=== PATIENT | female | born 1995 | race Caucasian/White ===

== ENCOUNTER 2019-08-25 14:41 | Inpatient (IN) | payer BC ==
--- NOTE | 2019-08-25 14:50 | PDOC ---
Rapid Medical Evaluation Time Seen by Provider: 08/25/19 14:47 Medical Evaluation: Allergies Allergy/AdvReac Type Severity Reaction Status Date / Time No Known Allergies Allergy Verified 02/11/15 10:29 08/25/19 14:48 I performed a brief in-person evaluation of this patient. Patient referred by PCP with hgb 6.3. Reports LMP one month ago, lasted approx 3 months. C/o dizziness, SOB, intermittent CP. Alert, oriented, no distress. RRR, tachycardic (110). Lungs CTAB. I have ordered the following: EKG CXR Pgu CBC, CMP, PT/INR, T&S Patient will proceed to the main ED for further evaluation. 08/25/19 14:50 Discharge Disposition - Diagnosis Symptomatic anemia - Referrals - Patient Instructions - Post Discharge Activity
[2019-08-25 16:23] LABS: HEMATOCRIT 21.8 % (32.4-45.2); LYMPH % 27.9 % (8-40); MCHC 28.9 g/dl (32.0-36.0); MEAN CELL VOLUME 53.5 fl (80-96); MEAN PLT VOLUME 8.6 fl (7.5-11.1); MONO % 3.8 % (3.8-10.2); NEUT % 65.3 % (42.8-82.8); PLATELET COUNT 564 K/MM3 (134-434); RBC 4.08 M/mm3 (3.60-5.2); WHITE BLOOD COUNT 13.4 K/mm3 (4.0-10.0)
--- NOTE | 2019-08-25 16:23 | PDOC ---
History of Present Illness - General Chief Complaint: Blood Transfusion Stated Complaint: SENT BY PCP/TRANSFUSION Time Seen by Provider: 08/25/19 14:47 History Source: Patient Exam Limitations: Clinical Condition - History of Present Illness Initial Comments: 08/25/19 16:20 Morbid obese patient with no significant past medical history and history of menorrhagia since seen by general surgery for blood transfusion due to hemoglobin of 6.5 in office while doing preop labs for bariatric surgery. Patient report excessive menstrual bleeding with menstrual period lasting for 3 months. Denies any vaginal bleeding today. Patient report fatigue with intermittent lightheadedness for over a week now. Denies weakness, nausea, vomiting, palpitation. Denies history of blood transfusion. Patient report was on OCP control in the past which she self DC'd Is this a multiple visit Asthma Patient?: No Past History - Past Medical History Allergies/Adverse Reactions: Allergies Allergy/AdvReac Type Severity Reaction Status Date / Time No Known Allergies Allergy Verified 02/11/15 10:29 Home Medications: Ambulatory Orders Pantoprazole Sodium [Protonix] 40 mg PO DAILY #30 tablet. 02/11/15 Anemia: Yes (sickle cell trait) Asthma: No Cancer: No Cardiac Disorders: No Diabetes: No HTN: No Seizures: No Thyroid Disease: Yes - Reproductive History (#): 1 Para: 1 - Psycho Social/Smoking Cessation Hx Smoking Status: No Smoking History: Never smoked Have you smoked in the past 12 months: No Number of Cigarettes Smoked Daily: 0 Information on smoking cessation initiated: No Hx Alcohol Use: No Drug/Substance Use Hx: No Substance Use Type: None Hx Substance Use Treatment: No Review of Systems - Review of Systems Able to Perform ROS?: Yes Is the patient limited Luxembourgish proficient: No Constitutional: Yes: Weakness (intermittent fatigue). No: Fever, Malaise HEENTM: No: Symptoms Reported Respiratory: No: Symptoms reported, See HPI, Cough, Orthopnea, Shortness of Breath, SOB with Exertion, SOB at Rest, Stridor, Wheezing, Productive cough, Hemoptysis, Other Cardiac (ROS): No: Symptoms Reported, See HPI, Chest Pain, Edema, Irregular Heart Rate, Lightheadedness, Palpitations, Syncope, Chest Tightness, Other ABD/GI: No: Symptoms Reported, See HPI, Nausea, Vomiting, Abdominal cramping Musculoskeletal: No: Symptoms Reported Integumentary: No: Symptoms Reported Neurological: Yes: Symptoms reported, See HPI, Dizziness (intermittent). No: Tingling, Unsteady Gait, Ataxia Hematologic/Lymphatic: Yes: Symptoms Reported, See HPI, Anemia All Other Systems: Reviewed and Negative *Physical Exam - Vital Signs Last Vital Signs Temp Pulse Resp BP Pulse Ox 98.6 F 107 H 18 109/66 99 08/25/19 14:48 08/25/19 14:48 08/25/19 14:48 08/25/19 14:48 08/25/19 14:48 - Physical Exam Comments: 08/25/19 16:32 GENERAL: Well developed, well nourished. Awake and alert. No acute distress. NECK: Supple. Full ROM. CARDIOVASCULAR: Regular rate and rhythm. No murmurs, rubs, or gallops. Distal pulses are 2+ and symmetric. PULMONARY: No evidence of respiratory distress. Lungs clear to auscultation bilaterally. No wheezing, rales or rhonchi. ABDOMINAL: Soft. Non-tender. Non-distended. No rebound or guarding. No organomegaly. Normoactive bowel sounds. MUSCULOSKELETAL Normal range of motion at all joints. SKIN: Warm and dry. Normal capillary refill. No rashes. No cyanosis. NEUROLOGICAL: Alert, awake, appropriate. Gait is normal without ataxia. PSYCHIATRIC: Cooperative. Good eye contact. Appropriate mood General Appearance: Yes: Nourished, Appropriately Dressed. No: Apparent Distress ED Treatment Course - LABORATORY CBC & Chemistry Diagram: 08/25/19 16:10 08/25/19 16:10 Medical Decision Making - Medical Decision Making 08/25/19 16:22 Patient with no significant past medical history and history of menorrhagia since seen by PCP for blood transfusion due to hemoglobin of 6.5 in office. Patient report excessive menstrual bleeding with menstrual period lasting for 3 months. Denies any vaginal bleeding today. Patient report fatigue with intermittent lightheadedness for over a week now. Denies weakness, nausea, vomiting, palpitation. Denies history of blood transfusion. Patient report was on OCP control in the past which she self DC'd Pelvic exam unremarkable with normal cardiac and lung exam. Patient no acute distress. CBC, CMP, type and screen labs ordered. 08/25/19 16:54 CBC shows hemoglobin of 6.3. Patient will be admitted for transfusion. Type and screen labs still pending. 08/25/19 17:28 RH : Oneg. 2units of pRBC ordered. EKG ordered. Admitting medicine team contacted for admission 08/25/19 17:40 Patient seen by medicine and agrees to admission to Dr. Medrano Discharge - Discharge Information Problems reviewed: Yes Clinical Impression/Diagnosis: Symptomatic anemia Condition: Stable - Admission Yes - Follow up/Referral - Patient Discharge Instructions - Post Discharge Activity
[2019-08-25 16:30] LABS: MCH 15.5 pg (25.7-33.7)
[2019-08-25 16:34] LABS: HEMOGLOBIN 6.3 GM/dL (10.7-15.3)
[2019-08-25 16:53] LABS: ALBUMIN 3.7 g/dl (3.4-5.0); BILIRUBIN,TOTAL 0.3 mg/dL (0.2-1); BLOOD UREA NITROGEN 11.8 mg/dL (7-18); CALCIUM 8.8 mg/dL (8.5-10.1); CREATININE 0.9 mg/dL (0.55-1.3); POTASSIUM 4.1 mmol/L (3.5-5.1); TOT PROT 7.7 g/dl (6.4-8.2)
[2019-08-25 16:56] LABS: INR 1.2 (0.83-1.09); PROTHROMBIN TIME (PATIENT) 14.2 SEC (9.7-13.0)
--- NOTE | 2019-08-25 17:52 | HP ---
CHIEF COMPLAINT: lightheadedness PCP: none HISTORY OF PRESENT ILLNESS: Patient is a 23 y/o female with a history of menorhagia who presents from a doctors office for low hemoglobin level. patient reports hat she has very heavy menstrual cycles. She first had menarche at age 8. She reports since then her periods have lasted months, the longest being six months. Most recently her period was one month ago and lasted two months. In four days she goes through a box of tampons. She reports she always passes clots. At that time she went to a OBGYN doctor who prescribed her OCp's. Patient took them, her menstrual cycle stopped and she stopped the medication. Today she was visiting with a Bariatric surgeon to look into a bypass. Patient reports she is sometimes constipated, and cold. She denies nausea vomiting, chest pain, or difficulty breathing. Patient has SUDHEER but harding snot wear her bipap mask at night. No other complaints. ER course was notable for: (1) (2) (3) Recent Travel: denies PAST MEDICAL HISTORY: denies PAST SURGICAL HISTORY: denies family hx: HTN Social History: Smoking: denies Alcohol: socially Drugs: denies Allergies No Known Allergies Allergy (Verified 02/11/15 10:29) HOME MEDICATIONS: Home Medications Medication Instructions Recorded Pantoprazole Sodium [Protonix] 40 mg PO DAILY #30 tablet. 02/11/15 REVIEW OF SYSTEMS CONSTITUTIONAL: Absent: fever, chills, diaphoresis, generalized weakness, malaise, loss of appetite, weight change HEENT: Absent: rhinorrhea, nasal congestion, throat pain, throat swelling, difficulty swallowing, mouth swelling, ear pain, eye pain, visual changes CARDIOVASCULAR: Absent: chest pain, syncope, palpitations, irregular heart rate, lightheadedness , peripheral edema RESPIRATORY: Absent: cough, shortness of breath, dyspnea with exertion, orthopnea, wheezing, stridor, hemoptysis GASTROINTESTINAL: Absent: abdominal pain, abdominal distension, nausea, vomiting, diarrhea, constipation, melena, hematochezia GENITOURINARY: Absent: dysuria, frequency, urgency, hesitancy, hematuria, flank pain, genital pain MUSCULOSKELETAL: Absent: myalgia, arthralgia, joint swelling, back pain, neck pain SKIN: Absent: rash, itching, pallor HEMATOLOGIC/IMMUNOLOGIC: Absent: easy bleeding, easy bruising, lymphadenopathy, frequent infections ENDOCRINE:cold intolerance Absent: unexplained weight gain, unexplained weight loss, heat intolerance, NEUROLOGIC: dizziness, lightheadedness Absent: headache, focal weakness or paresthesias, unsteady gait, seizure, mental status changes, bladder or bowel incontinence PSYCHIATRIC: Absent: anxiety, depression, suicidal or homicidal ideation, hallucinations. PHYSICAL EXAMINATION Vital Signs - 24 hr 08/25/19 14:48 Temperature 98.6 F Pulse Rate 107 H Respiratory 18 Rate Blood Pressure 109/66 O2 Sat by Pulse 99 Oximetry (%) GENERAL: Awake, alert, and fully oriented, in no acute distress. Obese HEAD: Normal with no signs of trauma. EYES: Pupils equal, round and reactive to light, extraocular movements intact, s EARS, NOSE, THROAT: Moist mucous membranes. NECK: acanthosis nigricans in neck and at eye lids LUNGS: Breath sounds equal, clear to auscultation bilaterally. No wheezes, and no crackles. No accessory muscle use. HEART: Regular rate and rhythm, normal S1 and S2 without murmur, rub or gallop. ABDOMEN: Soft, nontender, not distended, normoactive bowel sounds, no guarding, no rebound, no masses. No hepatomegaly or splenomegaly. MUSCULOSKELETAL: Normal range of motion at all joints. LOWER EXTREMITIES: 2+ pulses, warm, well-perfused. No calf tenderness. No peripheral edema. SKIN: Warm, dry, normal turgor, no rashes or lesions noted, normal capillary refill. CBC, BMP 08/25/19 16:10 08/25/19 16:10 ASSESSMENT/PLAN: Patient is a 23 y/o female with a history of menorhagia who presents from a doctors office for symptomatic anemia. #symptomatic anemia - likely 2/2 to fibroids vs endocrine disorder - hemoglobin 6.3 - transfuse blood and f/u CBC 30 minutes after transfusion - f/u OBGYN - iron studies show iron deficeincy, venofer 200 ordered - f/u FOBT #Obesity - f/u A1c, lipid panel, tsh - patient in touch with bariatric surgeon for possible w/o #DVT ppx - SCD's FEN - regular diet Dispo: monitor on med surg Visit type - Emergency Visit Emergency Visit: Yes ED Registration Date: 08/25/19 Care time: The patient presented to the Emergency Department on the above date and was hospitalized for further evaluation of their emergent condition. - New Patient This patient is new to me today: Yes Date on this admission: 08/28/19 - Critical Care Critical Care patient: No ATTENDING PHYSICIAN STATEMENT I saw and evaluated the patient. I reviewed the resident's note and discussed the case with the resident. I agree with the resident's findings and plan as documented. SUBJECTIVE: OBJECTIVE: ASSESSMENT AND PLAN:
[2019-08-25 18:34] LABS: ANISOCYTOSIS 2+; MACROCYTOSIS 0; PLATELET ESTIMATE INCREASED; TEAR DROP CELLS 1+
[2019-08-25] MEDS ORDERED: IRON SUCROSE INJECTION 200 MG in SODIUM CHLORIDE 90 ML IVPB ONE (19:30)
[2019-08-25] MEDS ORDERED: ACETAMINOPHEN 325 MG TABLET (FP) PO ONE (22:01)
[2019-08-25 23:13] VITALS: BMI 66.9
--- NOTE | 2019-08-25 23:13 | PN ---
Progress Note (short form) - Note Progress Note: pt has pvt Career Coordinator MD from [employer] , please contact [employer] for Career Coordinator consult
[2019-08-26] MEDS ORDERED: IRON SUCROSE INJECTION 200 MG in SODIUM CHLORIDE 90 ML IVPB ONE (00:45)
[2019-08-26 01:58] LABS: HEMATOCRIT 22.7 % (32.4-45.2); MCHC 29.8 g/dl (32.0-36.0); MEAN CELL VOLUME 56.2 fl (80-96); MEAN PLT VOLUME 8.8 fl (7.5-11.1); PLATELET COUNT 530 K/MM3 (134-434); RBC 4.03 M/mm3 (3.60-5.2); RDW 20.9 % (11.6-15.6); WHITE BLOOD COUNT 13.1 K/mm3 (4.0-10.0)
[2019-08-26 02:15] LABS: MCH 16.7 pg (25.7-33.7)
[2019-08-26 02:17] LABS: HEMOGLOBIN 6.7 GM/dL (10.7-15.3)
[2019-08-26] MEDS ORDERED: ACETAMINOPHEN 325 MG TABLET (FP) PO ONE (04:28)
[2019-08-26 08:23] LABS: BASO % 0.9 % (0-2.0); EOS % 2.5 % (0-4.5); HEMATOCRIT 23.4 % (32.4-45.2); HEMOGLOBIN 7.3 GM/dL (10.7-15.3); LYMPH % 27.8 % (8-40); MCHC 31.2 g/dl (32.0-36.0); MEAN CELL VOLUME 57.1 fl (80-96); MEAN PLT VOLUME 8.4 fl (7.5-11.1); MONO % 4.2 % (3.8-10.2); NEUT % 64.6 % (42.8-82.8); PLATELET COUNT 496 K/MM3 (134-434); RBC 4.09 M/mm3 (3.60-5.2); RDW 25.4 % (11.6-15.6); WHITE BLOOD COUNT 10.8 K/mm3 (4.0-10.0)
[2019-08-26 08:32] LABS: MCH 17.8 pg (25.7-33.7)
[2019-08-26 08:37] LABS: ALBUMIN 3.2 g/dl (3.4-5.0); BILIRUBIN,TOTAL 0.8 mg/dL (0.2-1); BLOOD UREA NITROGEN 13.3 mg/dL (7-18); CALCIUM 8.2 mg/dL (8.5-10.1); MAGNESIUM 2.3 mg/dL (1.8-2.4); PHOSPHOROUS 4.1 mg/dL (2.5-4.9); POTASSIUM 4.2 mmol/L (3.5-5.1); TOT PROT 6.8 g/dl (6.4-8.2)
[2019-08-26 08:38] LABS: CHOLESTEROL 172 mg/dL (50-200); HDL CHOLESTEROL 26 mg/dL (40-60); LDL CHOLESTEROL (ONLY SJRH) 111 mg/dL (5-100); TRIGLYCERIDES 147 mg/dL (0-150)
[2019-08-26] MEDS ORDERED: PANTOPRAZOLE 40 MG TABLET (FP) PO SCH (10:00)
[2019-08-26] MEDS ORDERED: IRON SUCROSE INJECTION 100 MG in SODIUM CHLORIDE 95 ML IVPB ONE (10:26)
--- NOTE | 2019-08-26 10:26 | PN ---
<ShubhamrosarioNicola hernandez - Last Filed: 08/26/19 12:49> Physical Exam: Attending Addendum I have seen and examined the indicated patient independently/along with the resident team. I have personally verified all guevara exam findings and historical components. I have personally interpreted all diagnostics indicated per todays orders and reviewed interpretation of indicated subspecialty services. This patient meets a high level of medical complexity and warrants inpatient admission to avoid decompensation and worsening of the indicated illness. 60 minutes have been spent in the completion of this admission. S: Agree with historical findings as outlined in resident documentation regarding history of present illness. Blood counts today noted. Pending evaluation from [facility] OBGYN services. Hemodynamics stable. 10 system ROS completed and is negative aside from indicated issues in the resident/attending history of present illness and full documentation. Past Medical History and Past Surgical Histories reviewed in depth; per resident note Social history is reviewed; per resident note; Complete family history is reviewed with patient and is non-pertinent aside from the indicated issues outlined above. No sudden history of cardiac . O: All vital signs reviewed per ER records and are as per EMR NAD, AAO, Resting in bed; mentating at baseline per prior encounters NC AT EOMI PERRLA Neck supple, trachea midline, no jamie LN RRR s1/2 Lungs CTAB, w/ sym expansion NT ND +BS No skin breakdown or rashes noted CN2-12 wnl, no new focal deficits noted Muscle tone normal, no deficits in motor function or strength noted Normal mood, appropriate behavior, average insight A/P: Patient seen, examined, and discussed in depth with resident team. Problem list reviewed per resident note and agree with their discussion aside from as supplemented by myself below. Problems include: -Acute on chronic blood loss anemia -Iron deficiency anemia -Morbid Obesity (SUDHEER eval ordered, referring to bariatrics) -Thrombocytosis (likely reactive0 Full Code Continue to monitor on the floor; agree with plan as documented per resident note. ATTENDING PHYSICIAN STATEMENT I saw and evaluated the patient. I reviewed the resident's note and discussed the case with the resident. I agree with the resident's findings and plan as documented. SUBJECTIVE: OBJECTIVE: ASSESSMENT AND PLAN: <Clemente Washington - Last Filed: 08/26/19 20:42> Physical Exam: SUBJECTIVE: Pt without any bleeding today. Reports still lightheaded with walking to bathroom, but breathing overall improved. OBJECTIVE: Vital Signs Period Temp Pulse Resp BP Sys/Roland Pulse Ox Last 24 Hr 98.1 F-98.8 F 96-114 16-20 109-144/66-87 99-100 GENERAL: The patient is awake, alert, and fully oriented, in no acute distress. HEENT: NC/AT, ERICK, no pallor, MMM NECK: No JVD LUNGS: CTA bilaterally, no wheezes, no crackles, no accessory muscle use. HEART: RRR, S1, S2 without murmur ABDOMEN: Soft, obese, nontender, nondistended, normoactive bowel sounds, EXTREMITIES: 2+ pulses, warm, well-perfused, no edema. PSYCH: Normal mood, normal affect. SKIN: Warm, dry, normal turgor, no rashes or lesions noted Laboratory Results - last 24 hr 08/25/19 08/25/19 08/25/19 16:10 16:10 16:10 WBC 13.4 H RBC 4.08 Hgb 6.3 L* Hct 21.8 L D MCV 53.5 L MCH 15.5 L D MCHC 28.9 L RDW 20.0 H Plt Count 564 H D MPV 8.6 D Absolute Neuts (auto) 8.7 H Neutrophils % 65.3 Lymphocytes % 27.9 Monocytes % 3.8 Eosinophils % 2.0 Basophils % 1.0 Nucleated RBC % 0 Hypochromia 2+ Platelet Estimate Increased Polychromasia 1+ Poikilocytosis 1+ Anisocytosis 2+ Microcytosis 1+ Macrocytosis 0 Tear Drop Cells 1+ PT with INR 14.20 H INR 1.20 H Sodium 135 L Potassium 4.1 Chloride 102 Carbon Dioxide 27 Anion Gap 6 L BUN 11.8 Creatinine 0.9 Est GFR (CKD-EPI)AfAm 103.72 Est GFR (CKD-EPI)NonAf 89.49 Random Glucose 93 Calcium 8.8 Phosphorus Magnesium Iron 14 L TIBC 487 H Iron Saturation 2 L Unsaturated IBC 473 H Total Bilirubin 0.3 AST 24 ALT 41 Alkaline Phosphatase 98 Total Protein 7.7 Albumin 3.7 Triglycerides Cholesterol Total LDL Cholesterol HDL Cholesterol TSH Urine HCG, Qual Blood Type Antibody Screen Crossmatch 08/25/19 08/25/19 08/26/19 16:10 16:36 01:21 WBC 13.1 H RBC 4.03 Hgb 6.7 L* Hct 22.7 L MCV 56.2 L MCH 16.7 L MCHC 29.8 L RDW 20.9 H Plt Count 530 H MPV 8.8 Absolute Neuts (auto) Neutrophils % Lymphocytes % Monocytes % Eosinophils % Basophils % Nucleated RBC % Hypochromia Platelet Estimate Polychromasia Poikilocytosis Anisocytosis Microcytosis Macrocytosis Tear Drop Cells PT with INR INR Sodium Potassium Chloride Carbon Dioxide Anion Gap BUN Creatinine Est GFR (CKD-EPI)AfAm Est GFR (CKD-EPI)NonAf Random Glucose Calcium Phosphorus Magnesium Iron TIBC Iron Saturation Unsaturated IBC Total Bilirubin AST ALT Alkaline Phosphatase Total Protein Albumin Triglycerides Cholesterol Total LDL Cholesterol HDL Cholesterol TSH Urine HCG, Qual Negative Blood Type O NEGATIVE Antibody Screen Negative Crossmatch See Detail 08/26/19 08/26/19 08/26/19 07:20 07:20 07:20 WBC 10.8 H RBC 4.09 Hgb 7.3 L Hct 23.4 L MCV 57.1 L MCH 17.8 L MCHC 31.2 L RDW 25.4 H Plt Count 496 H MPV 8.4 Absolute Neuts (auto) 6.9 Neutrophils % 64.6 Lymphocytes % 27.8 Monocytes % 4.2 Eosinophils % 2.5 Basophils % 0.9 Nucleated RBC % 0 Hypochromia Platelet Estimate Polychromasia Poikilocytosis Anisocytosis Microcytosis Macrocytosis Tear Drop Cells PT with INR INR Sodium 138 Potassium 4.2 Chloride 104 Carbon Dioxide 27 Anion Gap 7 L BUN 13.3 Creatinine 1.0 Est GFR (CKD-EPI)AfAm 91.32 Est GFR (CKD-EPI)NonAf 78.79 Random Glucose 96 Calcium 8.2 L Phosphorus 4.1 Magnesium 2.3 Iron TIBC Iron Saturation Unsaturated IBC Total Bilirubin 0.8 AST 21 ALT 33 Alkaline Phosphatase 97 Total Protein 6.8 Albumin 3.2 L Triglycerides 147 Cholesterol 172 Total LDL Cholesterol 111 H HDL Cholesterol 26 L TSH 2.74 Urine HCG, Qual Blood Type Antibody Screen Crossmatch Active Medications Generic Name Dose Route Start Last Admin Trade Name Freq PRN Reason Stop Dose Admin Pantoprazole Sodium 40 mg 08/26/19 10:00 08/26/19 09:01 Protonix - PO 40 mg DAILY WANDY Administration ASSESSMENT/PLAN: Acute blood loss anemia Menorrhagia Morbid obesity GERD --Pt reports bleeding cessation --Hgb increased minimally with PRBC, however pt not actively bleeding anymore --Will transfuse 1UPRBC more and recheck CBC --Ordered transvaginal US --Normal results noted --Can follow outpatient SECURITY NURSE as discussed given normal TV U/S --Discussed needing sleep study for likely SUDHEER FEN: Fluids: PO Electrolytes: No abnormalities Nutrition: Regular diet PPX: DVT - scds only GI - Protonix Dispo: Will recheck CBC post next PRBC; if >7.8 can d/c home if pt without any symptoms (can write for d/c summary if during apiculturist) Case discussed with Dr. Mitchell Washington, DO - IM PGY-3 Visit type - Emergency Visit Emergency Visit: Yes ED Registration Date: 08/25/19 Care time: The patient presented to the Emergency Department on the above date and was hospitalized for further evaluation of their emergent condition. - New Patient This patient is new to me today: Yes Date on this admission: 08/26/19 - Critical Care Critical Care patient: No ATTENDING PHYSICIAN STATEMENT I saw and evaluated the patient. I reviewed the resident's note and discussed the case with the resident. I agree with the resident's findings and plan as documented. SUBJECTIVE: OBJECTIVE: ASSESSMENT AND PLAN:
[2019-08-26] MEDS ORDERED: ACETAMINOPHEN 325 MG TABLET (FP) PO PRN (11:30)
--- NOTE | 2019-08-26 12:54 | EKG ---
Test Reason : Blood Pressure : / mmHG Vent. Rate : 101 BPM Atrial Rate : 101 BPM P-R Int : 128 ms QRS Dur : 080 ms QT Int : 336 ms P-R-T Axes : 063 043 030 degrees QTc Int : 435 ms SINUS TACHYCARDIA POSSIBLE LEFT ATRIAL ENLARGEMENT NONSPECIFIC ST ABNORMALITY ABNORMAL ECG NO PREVIOUS ECGS AVAILABLE Confirmed by LOIDA DESHPANDE, SIDDHARTH ([id number]) on 08/26/2019 12:54:37 PM Referred By: Confirmed By:SIDDHARTH MARISCAL MD
[2019-08-26 20:34] LABS: HEMATOCRIT 25.9 % (32.4-45.2); HEMOGLOBIN 7.9 GM/dL (10.7-15.3); MCHC 30.4 g/dl (32.0-36.0); MEAN CELL VOLUME 58.7 fl (80-96); MEAN PLT VOLUME 8.7 fl (7.5-11.1); PLATELET COUNT 507 K/MM3 (134-434); RDW 28.1 % (11.6-15.6); WHITE BLOOD COUNT 12.6 K/mm3 (4.0-10.0)
[2019-08-26 20:36] LABS: MCH 17.9 pg (25.7-33.7)
--- NOTE | 2019-08-26 20:59 | PN ---
Progress Note (short form) - Note Progress Note: Night team received sign out to follow up CBC-- if hgb >7.8 can d/c home tonight. CBC shows Hgb 7.9 Patient is not feeling lightheaded or dizzy w/ ambulation, denies any bleeding. D/c order placed as per day team signout. Pt's nurse aware.
[2019-08-26 21:41] VITALS: BP 124/60; PULSE 93; TEMP 97.8
== END 2019-08-26 21:57 | disposition home or self-care (01) | DRG 812 ==
LOC: JER 14:41 → JERBED 16:52 → J7W 20:56
PROVIDERS: ADMIT Internal Medicine; ATTEND Internal Medicine
PROC: 30233N1 Transfusion of Nonautologous Red Blood Cells into Peripheral Vein, Percutaneous Approach (ICD-10-PCS; principal; 2019-08-25)
DX: D62 Acute posthemorrhagic anemia (principal); Z68.44 Body mass index [BMI] 60.0-69.9, adult; D50.0 Iron deficiency anemia secondary to blood loss (chronic); E66.01 Morbid (severe) obesity due to excess calories; D47.3 Essential (hemorrhagic) thrombocythemia; N92.0 Excessive and frequent menstruation with regular cycle; K21.9 Gastro-esophageal reflux disease without esophagitis
CPT/HCPCS: 36415; 36430; 36511; 71046-TC-FY; 76830-TC; 80053; 80061; 83036; 83540; 83550; 83721; 83735; 84100; 84443; 84466; 84703; 85025; 85027; 85610; 86850; 86900; 86901; 86922; 93005; 93010; 99285-25; J1756; P9038; P9058

== ENCOUNTER 2021-08-22 11:54 | Emergency (ER) | payer BC, OTHER ==
[2021-08-22 12:27] VITALS: TEMP 98; BMI 72.2
[2021-08-22] MEDS ORDERED: ACETAMINOPHEN 1000 MG/100 ML VIAL (NON FORMULARY) IVPB ONE (14:41)
[2021-08-22] MEDS ORDERED: ACETAMINOPHEN INJECTION 100 ML IVPB ONE (15:28)
[2021-08-22 15:39] LABS: BASO % 0.8 % (0-2.0); EOS % 1.8 % (0-4.5); HEMATOCRIT 28.3 % (32.4-45.2); HEMOGLOBIN 8.9 GM/dL (10.7-15.3); LYMPH % 27.9 % (8-40); MCHC 31.3 g/dl (32.0-36.0); MEAN CELL VOLUME 58.4 fl (80-96); MEAN PLT VOLUME 8.4 fl (7.5-11.1); NEUT % 66.5 % (42.8-82.8); PLATELET COUNT 465 10^3/uL (134-434); RBC 4.85 M/mm3 (3.60-5.2); RDW 22.3 % (11.6-15.6); WHITE BLOOD COUNT 10.5 K/mm3 (4.0-10.0)
[2021-08-22 15:41] LABS: MCH 18.3 pg (25.7-33.7)
[2021-08-22 15:46] LABS: INR 0.97 (0.83-1.09); PROTHROMBIN TIME (PATIENT) 11.9 SEC (9.7-13.0)
[2021-08-22 15:49] LABS: ACTIVATED PTT 30.3 SECONDS (25.2-36.5)
[2021-08-22 15:51] LABS: CALCIUM 8.8 mg/dL (8.5-10.1)
[2021-08-22 15:52] LABS: ALBUMIN 3.4 g/dl (3.4-5.0); BLOOD UREA NITROGEN 11.5 mg/dL (7-18)
[2021-08-22 15:55] LABS: CREATININE 0.9 mg/dL (0.55-1.3)
[2021-08-22 15:56] LABS: BILIRUBIN,TOTAL 0.4 mg/dL (0.2-1)
[2021-08-22 15:57] LABS: TOT PROT 7.7 g/dl (6.4-8.2)
[2021-08-22] MEDS ORDERED: LACTATED RINGERS SOLUTION 1000 ML INFUS.BAG IV ONE (16:23)
[2021-08-22] MEDS ORDERED: KETOROLAC TROMETHAMINE 15 MG/ML VIAL IVPUSH ONE (18:33)
[2021-08-22 19:23] VITALS: BP 146/84; PULSE 89
== END 2021-08-22 18:50 ==
LOC: JER 11:54
PROC: 3E0333Z Introduction of Anti-inflammatory into Peripheral Vein, Percutaneous Approach (ICD-10-PCS; principal; 2021-08-22)
PROC: 3E033GC Introduction of Other Therapeutic Substance into Peripheral Vein, Percutaneous Approach (ICD-10-PCS; 2021-08-22)
DX: N93.9 Abnormal uterine and vaginal bleeding, unspecified (principal)
CPT/HCPCS: 36415; 76830-TC; 80053; 84703; 85025; 85610; 85730; 86850; 86900; 86901; 96374; 96375; 99284-25; C9803; J0131; U0003; U0005

== ENCOUNTER 2023-08-06 18:41 | Emergency (ER) | payer OTHER ==
[2023-08-06 18:59] VITALS: BP 124/53; PULSE 81; RESP 18; TEMP 98; BMI 46.2
[2023-08-06 20:43] LABS: BASO % 0.4 % (0-2.0); EOS % 0.8 % (0-4.5); HEMATOCRIT 26.3 % (32.4-45.2); HEMOGLOBIN 8.2 GM/dL (10.7-15.3); LYMPH % 33.3 % (8-40); MEAN CELL VOLUME 57.3 fl (80-96); MEAN PLT VOLUME 8.3 fl (7.5-11.1); MONO % 4.3 % (3.8-10.2); NEUT % 61.2 % (42.8-82.8); PLATELET COUNT 498 10^3/uL (134-434); RBC 4.59 M/mm3 (3.60-5.2); RDW 20.6 % (11.6-15.6); WHITE BLOOD COUNT 13.3 K/mm3 (4.0-10.0)
[2023-08-06 20:51] LABS: EPI CELLS 18 /uL (0-25.1); HYALINE CASTS 0 /uL (0-3.1); PH,URINE 5.5 (5.0-8.0); URINE APPEARANCE CLEAR; URINE BACTERIA 354 /uL (0-1359); URINE BILIRUBIN NEGATIVE (NEGATIVE); URINE COLOR YELLOW; URINE GLUCOSE (UA) NEGATIVE (NEGATIVE); URINE KETONE NEGATIVE (NEGATIVE); URINE LEUK ESTERASE TRACE (NEGATIVE); URINE NITRITE NEGATIVE (NEGATIVE); URINE PROTEIN NEGATIVE (NEGATIVE); URINE RBC 12 /uL (0-23.9); URINE UROBILINOGEN 0.2 mg/dL (0.2-1.0); URINE WBC 19 /uL (0-25.8)
[2023-08-06 20:58] LABS: MCH 17.8 pg (25.7-33.7)
[2023-08-06] MEDS ORDERED: RHO(D) IMMUNE GLOBULIN 1,500 UNIT DISP.SYRIN IM ONE (21:44)
[2023-08-06 21:48] LABS: ANISOCYTOSIS 3+; MACROCYTOSIS 1+; OVALOCYTE 1+
== END 2023-08-07 00:04 | disposition home or self-care (01) ==
LOC: JER 18:41
DX: O20.9 Hemorrhage in early pregnancy, unspecified (principal); Z3A.09 9 weeks gestation of pregnancy
CPT/HCPCS: 36415; 76801-TC; 81003; 85025; 86850; 86900; 86901; 96372; 99284-25; J2790